=== PATIENT | male | born 1960 | race Caucasian/White ===

== ENCOUNTER → 2016-08-24 | Outpatient (CLI) | payer BC ==
[~2016-08-24] MED LIST: ASPEC325 PO; ATEN-173 PO; CLOP1TAB15 PO; EZET10TA41 PO; LISI-461 PO; METO25TA56 PO; NTRGSL/4 UT; PREG1CAP70 PO; SIMV80TA2 PO
--- NOTE | 2016-08-24 10:58 | DIAGNOSTIC IMAGING REPORT ---
LUMBAR SPINE 5 VIEWS HISTORY: Pain LOWER BACK PAIN COMPARISON: 08/11/2014 FINDINGS: Unchanged exam. Moderate degenerative disc change throughout. Very slight S-shaped scoliosis. No evidence for compression deformity. Moderate reactive on osteophytic change. No subluxation. IMPRESSION: Moderate degenerative change throughout the entire lumbar region. No acute process. Electronically signed by: Mitch Cook M.D. 08/24/2016 10:56 AM Dictated Date/Time: 08/24/2016 10:55 AM
== END | disposition home or self-care (01) ==
LOC: C.RAD 10:18
PROVIDERS: ATTEND Student in an Organized Health Care Education/Training Program
DX: M54.5 Low back pain (principal)

== ENCOUNTER 2019-09-27 16:34 | Inpatient (IN) ==
--- NOTE | 2019-09-27 16:55 | Emergency Department Note ---
History of Present Illness General Chief complaint: Neuro Symptoms/Deficit Stated complaint: DIZZY, BLURRY, WEAKNESS Time Seen by Provider: 09/27/19 16:39 Source: patient Mode of arrival: ambulatory Limitations: no limitations History of Present Illness Provider complaint: Blurred vision and dizziness Onset (ago): day(s) 2 Radiation: non-radiation Severity: moderate Current Pain Intensity: 0 Relieved By: + none Exacerbated By: + rest Associated symptoms: + weakness; no chest pain, no cough, no fever/chills, no headaches, no nausea/vomiting, no shortness of breath and no syncope Treatments prior to arrival: none This is a 59-year-old male who presents due to weakness, blurred vision, sense of being off balance which began yesterday. Patient states the blurred vision is both eyes and is constant, and does seem worse in his far vision. Patient does wear reading glasses, however this is new and different for him. No recent headaches, no tinnitus. Patient denies any true rotational component to the dizziness, describing it more as a sense of off balance when he attempts to change position or ambulate. Patient states he felt worse today and felt his symptoms were more severe, with difficulty walking. No nausea vomiting, no recent fevers or chills. Patient denies any recent URI symptoms. Patient states he was recently started on an oral medication for diabetes. He is not checking his blood sugar at home. No recent falls or trauma. No other recent medication changes. No known sick contact. No contact with any known coronavirus positive individual. No recent change in bowel or bladder function. Patient denies black or bloody stools. No recent leg swelling. Patient states he does have chronic neuropathy to his distal bilateral lower extremities over the last 20 years. Pt seen during a time of high acuity and national emergency pandemic while we aring PPE. Home Medications Home Medications Medication Instructions Recorded Confirmed Type aspirin [Aspirin Low Dose] 81 mg PO QAM 09/27/19 09/27/19 History atorvastatin 40 mg PO HS 09/27/19 09/27/19 History fenofibrate nanocrystallized 145 mg PO DAILY 09/27/19 09/27/19 History gabapentin 600 mg PO BID 09/27/19 09/27/19 History lisinopril 20 mg PO DAILY 09/27/19 09/27/19 History metformin 500 mg PO TID 09/27/19 09/27/19 History metoprolol tartrate 50 mg PO BID 09/27/19 09/27/19 History nitroglycerin 4 mg SUBLINGUAL .PRN/UD PRN 09/27/19 09/27/19 History pregabalin [Lyrica] 150 mg PO BID 09/27/19 09/27/19 History glipizide [Glucotrol XL] 5 mg PO DAILY 30 Days #60 tab 09/28/19 Rx Allergies Allergy/AdvReac Type Severity Reaction Status Date / Time No Known Allergies Allergy Mild Unverified 09/27/19 17:46 Past Med/Surg History Medical History (Updated 09/28/19 @ 05:02 by Eddie Parker MD) Benign essential tremor Bilateral impacted cerumen Coronary arteriosclerosis Dyslipidemia Hypertension Peripheral neuropathy Tremor Surgical History History of cardiac catheterization Family History Mother Lymphoma Father No problems noted. Social History Preferred Language: [place] Communication Ability: Effective Bottle Assembler Required: No Beliefs That Will Affect Care: None Current Living Situation: Spouse Feels Safe at Home: Yes Smoking Status: Unknown if ever smoked Hx Alcohol Use: No Hx Substance Use: No Review of Systems See HPI for pertinent positives & negatives. and A total of 10 systems reviewed and were otherwise negative Physical Exam Vital Signs Vital Signs - 24 hr 09/27/19 16:36 09/27/19 17:00 09/27/19 17:15 Temperature 36.7 C Temperature Source Oral Pulse Rate 74 Pulse Rate [Left Apical] 78 Pulse Rate from SpO2 Sensor Respiratory Rate 18 18 Respiratory Effort / Characteristics Non-Labored Spontaneous Respiratory Depth Normal Blood Pressure 129/79 Blood Pressure [Right Arm] 124/79 Blood Pressure Mean 95 Blood Pressure Mean [Right Arm] 94 Blood Pressure Position Sitting Pulse Oximetry 97 98 Oxygen Delivery Method Room Air Room Air Room Air Sepsis Recent Fever Within 48 Hours No Sepsis New/Unexplained Change in Mental Status No Sepsis Action Taken by Nursing No Action Required 09/27/19 17:26 09/27/19 18:00 09/27/19 18:30 Temperature Temperature Source Pulse Rate 65 62 63 Pulse Rate [Left Apical] Pulse Rate from SpO2 Sensor 65 63 Respiratory Rate 21 17 30 H Respiratory Effort / Characteristics Respiratory Depth Blood Pressure 131/85 117/78 113/69 Blood Pressure [Right Arm] Blood Pressure Mean 93 84 82 Blood Pressure Mean [Right Arm] Blood Pressure Position Pulse Oximetry 98 96 Oxygen Delivery Method Sepsis Recent Fever Within 48 Hours Sepsis New/Unexplained Change in Mental Status Sepsis Action Taken by Nursing 09/27/19 19:00 09/27/19 20:38 09/27/19 21:49 Temperature Temperature Source Pulse Rate 61 Pulse Rate [Left Apical] 54 L 60 Pulse Rate from SpO2 Sensor 61 Respiratory Rate 15 18 18 Respiratory Effort / Characteristics Respiratory Depth Blood Pressure 121/74 Blood Pressure [Right Arm] 124/87 131/76 Blood Pressure Mean 89 Blood Pressure Mean [Right Arm] 99 94 Blood Pressure Position Pulse Oximetry 94 96 99 Oxygen Delivery Method Room Air Room Air Sepsis Recent Fever Within 48 Hours Sepsis New/Unexplained Change in Mental Status Sepsis Action Taken by Nursing 09/27/19 22:00 09/27/19 22:01 09/27/19 22:30 Temperature Temperature Source Pulse Rate 55 L 55 L 51 L Pulse Rate [Left Apical] Pulse Rate from SpO2 Sensor 55 L Respiratory Rate 14 16 16 Respiratory Effort / Characteristics Respiratory Depth Blood Pressure 116/65 105/66 Blood Pressure [Right Arm] Blood Pressure Mean 76 75 Blood Pressure Mean [Right Arm] Blood Pressure Position Pulse Oximetry 97 97 96 Oxygen Delivery Method Sepsis Recent Fever Within 48 Hours Sepsis New/Unexplained Change in Mental Status Sepsis Action Taken by Nursing 09/27/19 23:28 09/27/19 23:55 09/28/19 00:01 Temperature Temperature Source Pulse Rate 57 L 58 L Pulse Rate [Left Apical] 56 L Pulse Rate from SpO2 Sensor Respiratory Rate 16 18 18 Respiratory Effort / Characteristics Respiratory Depth Blood Pressure 139/75 121/68 Blood Pressure [Right Arm] 123/83 Blood Pressure Mean 90 92 Blood Pressure Mean [Right Arm] 96 Blood Pressure Position Pulse Oximetry 98 96 95 Oxygen Delivery Method Room Air Room Air Sepsis Recent Fever Within 48 Hours Sepsis New/Unexplained Change in Mental Status Sepsis Action Taken by Nursing 09/28/19 00:31 09/28/19 01:00 Temperature Temperature Source Pulse Rate 54 L 61 Pulse Rate [Left Apical] Pulse Rate from SpO2 Sensor Respiratory Rate 15 20 Respiratory Effort / Characteristics Respiratory Depth Blood Pressure 113/61 111/66 Blood Pressure [Right Arm] Blood Pressure Mean 68 79 Blood Pressure Mean [Right Arm] Blood Pressure Position Pulse Oximetry 95 95 Oxygen Delivery Method Room Air Sepsis Recent Fever Within 48 Hours Sepsis New/Unexplained Change in Mental Status Sepsis Action Taken by Nursing GENERAL: alert, well appearing, well nourished, no distress, non-toxic EARS: Scant cerumen bilateral canals, TMs clear bilaterally EYE EXAM: normal conjunctiva, PERRLA and EOM's grossly intact, no nystagmus, no periorbital edema, no hyphema, no subconjunctival hemorrhage OROPHARYNX: no exudate, no erythema, lips, buccal mucosa, and tongue normal and mucous membranes are moist NECK: supple, no nuchal rigidity, no adenopathy, non-tender LUNGS: Clear to auscultation. Normal chest wall mechanics, no w/r/r HEART: no murmurs, S1 normal and S2 normal ABDOMEN: abdomen soft, non-tender, normo-active bowel sounds, no masses, no rebound or guarding. BACK: Back is symmetrical on inspection and there is no deformity, no midline tenderness, no CVA tenderness. SKIN: no rashes and no bruising UPPER EXTREMITIES: upper extremities are grossly normal. FROM, nml pulses b/l. LOWER EXTREMITIES: No pitting edema. FROM, nml pulses b/l. NEURO EXAM: Normal sensorium, cranial nerves II-XII grossly intact, normal speech, no gross weakness of arms, no gross weakness of legs. Gross sensation intact. Negative pronator drift. Normal [id number]. No ataxia. No facial droop. Strength 5/5 bilateral upper and lower extremities. Course Course 1804: Pt updated on results. VS stable. 2124: Discussed MRI with pt. Discussed dispo - he would like to go home. 2310: Pt attempted to walk at time of discharge and was very ataxic and complaining of increased sense of feeling off balance. Discussed possible additional inpatient mgmt and he was in agreement. 003: Case discussed with Dr. Parker for inpatient management. Administered Medications Discontinued Medications Aspirin (Ecotrin Ectab) 81 mg PO QAM [facility] Stop: 10/28/19 08:59 Last Admin: 09/28/19 08:30 Dose: 81 mg Documented by: [id number] Enoxaparin Sodium (Lovenox) 40 mg SQ Q24H [facility] Stop: 10/28/19 08:59 Last Admin: 05/17/20 08:30 Dose: 40 mg Documented by: [id number] Fenofibrate (Tricor) 145 mg PO DAILY [facility] Stop: 10/28/19 08:59 Last Admin: 09/28/19 08:30 Dose: 145 mg Documented by: [id number] Gabapentin (Neurontin) 600 mg PO BID [facility] Stop: 10/28/19 08:59 Last Admin: 09/28/19 08:30 Dose: 600 mg Documented by: [id number] Glimepiride (Amaryl) 2 mg PO QAM [facility] Stop: 10/28/19 10:29 Last Admin: 09/28/19 10:59 Dose: Not Given Documented by: [id number] Glipizide (Glucotrol Extended Rel) 5 mg PO QAM [facility] Stop: 10/28/19 10:59 Last Admin: 09/28/19 11:14 Dose: 5 mg Documented by: [id number] Sodium Chloride (Nss 1000ml) 1,000 mls @ 125 mls/hr IV .Q8H [facility] Stop: 10/27/19 16:59 Last Infusion: 09/28/19 10:27 Dose: 0 mls/hr Documented by: [id number] Admin: 09/28/19 09:53 Dose: 125 mls/hr Documented by: [id number] Infusion: 09/28/19 09:53 Dose: 125 mls/hr Documented by: [id number] Admin: 09/28/19 01:55 Dose: 125 mls/hr Documented by: [id number] Infusion: 09/28/19 01:35 Dose: 125 mls/hr Documented by: [id number] Admin: 09/27/19 17:35 Dose: 125 mls/hr Documented by: [id number] Insulin Aspart (Novolog Flexpen) 0 units SC ACHS [facility] Stop: 10/28/19 07:29 Last Admin: 09/28/19 08:31 Dose: 6 units Documented by: [id number] Cosigned by: [id number] Lisinopril (Zestril) 20 mg PO DAILY [facility] Stop: 10/28/19 08:59 Last Admin: 09/28/19 08:30 Dose: 20 mg Documented by: [id number] Meclizine HCl (Antivert) 25 mg PO NOW STA Stop: 09/27/19 23:09 Last Admin: 09/27/19 23:54 Dose: 25 mg Documented by: [id number] Metoprolol Tartrate (Lopressor) 50 mg PO BID [facility] Stop: 10/28/19 08:59 Last Admin: 09/28/19 08:31 Dose: Not Given Documented by: [id number] Pneumococcal Polyvalent Vaccine (Pneumovax-23) 25 mcg IM .ONCE ONE Stop: 09/28/19 04:16 Last Admin: 09/28/19 09:54 Dose: Not Given Documented by: [id number] Pregabalin (Lyrica) 150 mg PO BID [facility] Stop: 10/28/19 08:59 Last Admin: 09/28/19 08:30 Dose: 150 mg Documented by: [id number] Medical Decision Making Differential Diagnosis Differential diagnosis includes etiologies such as benign positional vertigo, dehydration, hypovolemia, anemia, tumor, infection, hypoglycemia, electrolyte abnormalities, cardiac sources, intracerebral event, toxicologic, neurologic, as well as others were entertained. Medical Records Attestation: I reviewed the patient's medical records. Home Medications Current Medication List: was personally reviewed by me Laboratory Data Attestation: I reviewed the patient's lab results. Result diagrams: 09/27/19 17:00 09/27/19 17:00 Lab Results 09/27/19 09/27/19 09/27/19 Range/Units 17:00 17:00 17:28 WBC 7.85 (4.8-10.8) K/uL RBC 4.61 L (4.7-6.1) M/uL Hgb 14.4 (14.0-18.0) g/dL Hct 42.0 (42-52) % MCV 91.1 (80-100) fL MCH 31.2 (25-34) pg MCHC 34.3 (32-36) g/dL RDW Std Deviation 41.8 (36.4-46.3) fL RDW Coeff of Geoff 12.6 (11.5-14.5) % Plt Count 139 (130-400) K/uL MPV 11.8 H (7.4-10.4) fL Immature Gran % (Auto) 0.4 % Neut % (Auto) 61.7 % Lymph % (Auto) 27.1 % [place] % (Auto) 7.8 % Eos % (Auto) 2.7 % Baso % (Auto) 0.3 % Immature Gran # (Auto) 0.03 H (0.00-0.02) K/uL Neut # (Auto) 4.85 (1.4-6.5) K/uL Lymph # (Auto) 2.13 (1.2-3.4) K/uL [place] # (Auto) 0.61 H (0.11-0.59) K/uL Eos # (Auto) 0.21 (0-0.5) K/uL Baso # (Auto) 0.02 (0-0.2) K/uL Sodium 135 L (136-145) mmol/L Potassium 4.2 (3.5-5.1) mmol/L Chloride 102 (98-107) mmol/L Carbon Dioxide 25 (21-32) mmol/L Anion Gap 8.0 (3-11) BUN 20 H (7-18) mg/dl Creatinine 1.08 (0.6-1.4) mg/dl Est Cr Clr Drug Dosing 90.1 ml/min Est GFR ( Amer) 86.6 Est GFR (Non-Af Amer) 74.7 BUN/Creatinine Ratio 18.8 (10-20) Glucose 306 H* (70-99) mg/dl POC Glucose 306 H* (70-99) mg/dl Calcium 9.0 (8.5-10.1) mg/dl Magnesium 1.9 (1.8-2.4) mg/dl Total Bilirubin 0.6 (0.2-1) mg/dl AST 16 (15-37) U/L ALT 31 (12-78) U/L Alkaline Phosphatase 112 (45-117) U/L Troponin I < 0.015 (0-0.045) ng/ml Total Protein 7.3 (6.4-8.2) gm/dl Albumin 4.1 (3.4-5.0) gm/dl Globulin 3.2 (2.5-4.0) gm/dl Albumin/Globulin Ratio 1.3 (0.9-2) Lipase 386 (73-393) U/L Beta-Hydroxybutyric Acd 1.14 (0.2-2.81) mg/dl TSH 1.980 (0.300-4.500) uIu/ml Urine Color Urine Appearance (Clear) Urine pH (4.5-7.5) Ur Specific [place] (1.000-1.030) Urine Protein (Negative) Urine Glucose (UA) (Negative) Urine Ketones (Negative) Urine Blood (Negative) Urine Nitrite (Negative) Urine Bilirubin (Negative) Urine Urobilinogen (Negative) Ur Leukocyte Esterase (Negative) 09/27/19 09/27/19 Range/Units 18:21 20:42 WBC (4.8-10.8) K/uL RBC (4.7-6.1) M/uL Hgb (14.0-18.0) g/dL Hct (42-52) % MCV (80-100) fL MCH (25-34) pg MCHC (32-36) g/dL RDW Std Deviation (36.4-46.3) fL RDW Coeff of Geoff (11.5-14.5) % Plt Count (130-400) K/uL MPV (7.4-10.4) fL Immature Gran % (Auto) % Neut % (Auto) % Lymph % (Auto) % [place] % (Auto) % Eos % (Auto) % Baso % (Auto) % Immature Gran # (Auto) (0.00-0.02) K/uL Neut # (Auto) (1.4-6.5) K/uL Lymph # (Auto) (1.2-3.4) K/uL [place] # (Auto) (0.11-0.59) K/uL Eos # (Auto) (0-0.5) K/uL Baso # (Auto) (0-0.2) K/uL Sodium (136-145) mmol/L Potassium (3.5-5.1) mmol/L Chloride (98-107) mmol/L Carbon Dioxide (21-32) mmol/L Anion Gap (3-11) BUN (7-18) mg/dl Creatinine (0.6-1.4) mg/dl Est Cr Clr Drug Dosing ml/min Est GFR ( Amer) Est GFR (Non-Af Amer) BUN/Creatinine Ratio (10-20) Glucose (70-99) mg/dl POC Glucose 230 H (70-99) mg/dl Calcium (8.5-10.1) mg/dl Magnesium (1.8-2.4) mg/dl Total Bilirubin (0.2-1) mg/dl AST (15-37) U/L ALT (12-78) U/L Alkaline Phosphatase (45-117) U/L Troponin I (0-0.045) ng/ml Total Protein (6.4-8.2) gm/dl Albumin (3.4-5.0) gm/dl Globulin (2.5-4.0) gm/dl Albumin/Globulin Ratio (0.9-2) Lipase (73-393) U/L Beta-Hydroxybutyric Acd (0.2-2.81) mg/dl TSH (0.300-4.500) uIu/ml Urine Color Yellow Urine Appearance Clear (Clear) Urine pH 5.0 (4.5-7.5) Ur Specific [place] 1.021 (1.000-1.030) Urine Protein Negative (Negative) Urine Glucose (UA) 3+ H (Negative) Urine Ketones Negative (Negative) Urine Blood Negative (Negative) Urine Nitrite Negative (Negative) Urine Bilirubin Negative (Negative) Urine Urobilinogen Negative (Negative) Ur Leukocyte Esterase Negative (Negative) Imaging Data Radiologist's Impression: CT SCAN OF THE BRAIN WITHOUT IV CONTRAST CLINICAL HISTORY: Dizziness. Blurry vision. COMPARISON STUDY: No priors. TECHNIQUE: Unenhanced axial CT scan of the brain is performed from the vertex to the skull base. A dose lowering technique was utilized adhering to the principles of ALARA. CT DOSE: 537.48 mGy.cm FINDINGS: Brain parenchyma: The brain parenchyma is normal in appearance. There is no hemorrhage, mass effect, or evidence of acute territorial ischemia by CT criteria. Cisneros-white matter differentiation is preserved. No extra-axial fluid collection is seen. Faint mineralization is noted in the basal ganglia. Ventricles, sulci, cisterns: Normal in configuration. Intracranial vasculature: The visualized intracranial vasculature at the skull base is normal in appearance. Calvarium: Unremarkable. Sinuses and mastoids: The visualized paranasal sinuses are clear. The mastoid air cells are well pneumatized. Orbits: The bony orbits are grossly intact. IMPRESSION: There is no hemorrhage, mass effect, or evidence of acute territorial ischemia by CT criteria. ACT 112: Negative or not required by law. Electronically signed by: Lm Ambrocio M.D. 09/27/2019 5:26 PM MRI OF THE BRAIN WITHOUT IV CONTRAST CLINICAL HISTORY: Dizziness. Blurry vision. COMPARISON STUDY: CT of the brain performed the same day 09/27/2019. TECHNIQUE: MRI of the brain was performed utilizing various T1 and T2-weighted sequences in the axial, sagittal, and coronal planes. IV contrast was not administered for this examination. FINDINGS: Brain parenchyma: The brain parenchyma is normal in appearance. There is no hemorrhage or mass effect. There is no restricted diffusion to suggest acute ischemia. Cisneros-white matter differentiation is preserved. No extra-axial fluid collection is seen. Mineralization is noted in the basal ganglia. The cerebellar tonsils are normal in configuration. Ventricles, sulci, and cisterns: Normal in configuration. Pituitary and sella: Unremarkable. Intracranial vasculature: Normal flow voids are maintained at the skull base. Orbits: The bony orbits are grossly intact. Orbital contents are normal in appearance. Sinuses and mastoids: There is mild mucosal thickening in the left maxillary antrum. The remaining paranasal sinuses are clear. The mastoid air cells are w ell pneumatized. Calvarium: Unremarkable. Cervical cord: Partially visualized cervical spinal cord is normal in morphology and signal intensity. IMPRESSION: No acute intracranial abnormality. ACT 112: Negative or not required by law. Electronically signed by: Lm Ambrocio M.D. 09/27/2019 8:11 PM MR ANGIOGRAM OF THE BRAIN CLINICAL HISTORY: Dizziness. Blurred vision. COMPARISON STUDY: CT and MRI of the brain performed the same day 09/27/2019. TECHNIQUE: 3-D [id number] MR angiography of the intracranial circulation is performed. 3-D tumble views are created and assessed. IV contrast was not administered for this examination. FINDINGS: There is a large right posterior communicating artery. The internal carotid arteries are widely patent bilaterally, as are the anterior and middle cerebral arteries. The vertebrobasilar system and posterior cerebral arteries are widely patent. The vertebral arteries are codominant. There is no aneurysm, high-grade stenosis, or focal vessel cutoff seen throughout the intracranial circulation. The brain parenchyma is normal as visualized. IMPRESSION: Unremarkable MR angiogram of the brain. ACT 112: Negative or not required by law. Electronically signed by: Lm Ambrocio M.D. 09/27/2019 8:13 PM ECG Data Attestation: I personally reviewed and interpreted this ECG as follows: Indication: + weakness Rate (beats per minute): 70 Rhythm: + normal sinus ECG Intervals/blocks: + Normal QRS and + Normal QT ECG [place]: + Normal ECG Findings: + Q waves (II, III, aVF) Blood Pressure Blood Pressure Findings: Elevated blood pressure Blood Pressure Disposition: further management by hospitalist PAWEL Narrative Patient here with concerning story of dizziness/off-balance sense as well as blurred vision for at least 24 to 36 hours. Patient had no other complaints of neurologic symptoms or headaches. Patient is a diabetic and was recently started on metformin. Patient does have other risk factors for peripheral vascular disease. Labs drawn and sent and patient initially sent for CT of the head without contrast. These are reassuring with the exception of hyperglycemia over 300. No evidence of DKA. No evidence of occult infectious etiology. Due to patient's risk factors and concern for risk for posterior circulation etiology, patient in agreement with plan to pursue MRI. MRI reassuring. Discussed with patient possible etiology. Patient symptoms seem less likely related to peripheral etiology on my initial exam despite lack of nystagmus or other focal neurologic deficits. Patient states he has not seen an eye doctor in many years and I discussed with him the importance of follow-up due to risk of diabetic retinopathy. No obvious evidence of a cranial nerve palsy secondary to diabetic neuropathy. Patient with chronic lower extremity peripheral ne uropathy. Discussed with him this could be contributing to a sense of off balance as well although this seems to be more of a chronic issue and he had not noticed any worsening symptoms despite his new diagnosis of diabetes. We discussed disposition on several occasions and patient insistent on going home and was in agreement with plan for follow-up as recommended with his family doctor, ophthalmology, as well as neurology. Patient tolerated p.o. here without difficulty. Discussed with patient no driving, and symptoms to return for and he was in agreement. At time of discharge patient went to get up and was ambulating and appeared markedly ataxic, reported feeling worse, and due to concern for safety and severity of symptoms, I again discussed with him possible inpatient management and he was in agreement. Case discussed with hospitalist. An order was placed for continuous cardiac monitoring. The monitor shows a rate of 60 with normal sinus rhythm. Impression & Plan Dizziness, Changes in vision, Hyperglycemia Discharge Plan Visit Data *Final* Discharge Date/Time: 09/28/19 01:27 Chief Complaint: Neuro Symptoms/Deficit Stated Complaint: DIZZY, BLURRY, WEAKNESS ED Provider: Niya Mishra Discharge Problem: Dizziness, Changes in vision, Hyperglycemia Patient Disposition: Admitted As Inpatient Condition: Good Discharge Instructions Interventions: ED Discharge Assessment Last Done: 09/28/19 01:27
[2019-09-27 17:19] LABS: Basophils # (auto) 0.02 K/uL (0-0.2); Basophils % (auto) 0.3 %; Eosinophils # (auto) 0.21 K/uL (0-0.5); Eosinophils % (auto) 2.7 %; Hemoglobin 14.4 g/dL (14.0-18.0); Immature Granulocytes # (auto) 0.03 K/uL (0.00-0.02); Immature Granulocytes % (auto) 0.4 %; Lymphocytes # (auto) 2.13 K/uL (1.2-3.4); Lymphocytes % (auto) 27.1 %; Mean Corpuscular Hemoglobin 31.2 pg (25-34); Mean Corpuscular Hgb Conc 34.3 g/dL (32-36); Mean Corpuscular Volume 91.1 fL (80-100); Mean Platelet Volume 11.8 fL (7.4-10.4); Monocytes # (auto) 0.61 K/uL (0.11-0.59); Monocytes % (auto) 7.8 %; Neutrophils # (auto) 4.85 K/uL (1.4-6.5); Neutrophils % (auto) 61.7 %; Platelet Count 139 K/uL (130-400); RDW Coefficient of Variation 12.6 % (11.5-14.5); RDW Standard Deviation 41.8 fL (36.4-46.3); Red Blood Count 4.61 M/uL (4.7-6.1); White Blood Count 7.85 K/uL (4.8-10.8)
--- NOTE | 2019-09-27 17:28 | CT Scan Report ---
CT SCAN OF THE BRAIN WITHOUT IV CONTRAST CLINICAL HISTORY: Dizziness. Blurry vision. COMPARISON STUDY: No priors. TECHNIQUE: Unenhanced axial CT scan of the brain is performed from the vertex to the skull base. A d ose lowering technique was utilized adhering to the principles of ALARA. CT DOSE: 537.48 mGy.cm FINDINGS: Brain parenchyma: The brain parenchyma is normal in appearance. There is no hemorrhage, mass effect, or evidence of acute territorial ischemia by CT criteria. Cisneros-white matter differentiation is preser yvonne. No extra-axial fluid collection is seen. Faint mineralization is noted in the basal ganglia. Ventricles, sulci, cisterns: Normal in configuration. Intracranial vasculature: The visualized intracranial vasculature at the skull base is normal in appe arance. Calvarium: Unremarkable. Sinuses and mastoids: The visualized paranasal sinuses are clear. The mastoid air cells are well pneu matized. Orbits: The bony orbits are grossly intact. IMPRESSION: There is no hemorrhage, mass effect, or evidence of acute territorial ischemia by CT haily sanchez. ACT 112: Negative or not required by law. Electronically signed by: Lm Ambrocio M.D. 09/27/2019 5:26 PM
[2019-09-27] MEDS: SODIUM CHLORIDE 0.9% 1000ML 1,000 ML IV SCH (17:35)
[2019-09-27 17:47] LABS: Alanine Aminotransferase 31 U/L (12-78); Albumin Level 4.1 gm/dl (3.4-5.0); Aspartate Aminotransferase 16 U/L (15-37); BUN Creatinine Ratio 18.8 (10-20); Blood Urea Nitrogen 20 mg/dl (7-18); Carbon Dioxide 25 mmol/L (21-32); Chloride 102 mmol/L (98-107); Creatinine Clr Calc Pharmacy 90.1 ml/min; Est GFR (African American) 86.6; Est GFR (Non-African American) 74.7; Glucose 306 mg/dl (70-99); Lipase 386 U/L (73-393); Magnesium 1.9 mg/dl (1.8-2.4); Potassium 4.2 mmol/L (3.5-5.1); Sodium 135 mmol/L (136-145)
[2019-09-27 17:49] LABS: Albumin Globulin Ratio 1.3 (0.9-2); Alkaline Phosphatase 112 U/L (45-117); Bilirubin,Total 0.6 mg/dl (0.2-1); Globulin 3.2 gm/dl (2.5-4.0); Total Protein 7.3 gm/dl (6.4-8.2); Troponin I < 0.015 ng/ml (0-0.045)
[2019-09-27 18:16] LABS: Beta-Hydroxybutyrate 1.14 mg/dl (0.2-2.81)
[2019-09-27 18:35] LABS: Appearance Urine Clear (Clear); Bilirubin Urine Negative (Negative); Blood Urine Negative (Negative); Color Urine Yellow; Glucose Urine UA 3+ (Negative); Ketones Urine Negative (Negative); Leukocyte Esterase Urine Negative (Negative); Nitrite Urine Negative (Negative); Protein Urine Negative (Negative); Specific Gravity Urine 1.021 (1.000-1.030); Urobilinogen Urine Negative (Negative)
--- NOTE | 2019-09-27 20:12 | Magnetic Resonance Report ---
MRI OF THE BRAIN WITHOUT IV CONTRAST CLINICAL HISTORY: Dizziness. Blurry vision. COMPARISON STUDY: CT of the brain performed the same day 09/27/2019. TECHNIQUE: MRI of the brain was performed utilizing various T1 and T2-weighted sequences in the axial , sagittal, and coronal planes. IV contrast was not administered for this examination. FINDINGS: Brain parenchyma: The brain parenchyma is normal in appearance. There is no hemorrhage or mass effect . There is no restricted diffusion to suggest acute ischemia. Cisneros-white matter differentiation is pr eserved. No extra-axial fluid collection is seen. Mineralization is noted in the basal ganglia. The c erebellar tonsils are normal in configuration. Ventricles, sulci, and cisterns: Normal in configuration. Pituitary and sella: Unremarkable. Intracranial vasculature: Normal flow voids are maintained at the skull base. Orbits: The bony orbits are grossly intact. Orbital contents are normal in appearance. Sinuses and mastoids: There is mild mucosal thickening in the left maxillary antrum. The remaining pa ranasal sinuses are clear. The mastoid air cells are well pneumatized. Calvarium: Unremarkable. Cervical cord: Partially visualized cervical spinal cord is normal in morphology and signal intensity . IMPRESSION: No acute intracranial abnormality. ACT 112: Negative or not required by law. Electronically signed by: Lm Ambrocio M.D. 09/27/2019 8:11 PM
--- NOTE | 2019-09-27 20:15 | Magnetic Resonance Report ---
MR ANGIOGRAM OF THE BRAIN CLINICAL HISTORY: Dizziness. Blurred vision. COMPARISON STUDY: CT and MRI of the brain performed the same day 09/27/2019. TECHNIQUE: 3-D [id number] MR angiography of the intracranial circulation is performed. 3-D tumble views are created and assessed. IV contrast was not administered for this examination. FINDINGS: There is a large right posterior communicating artery. The internal carotid arteries are wi colton patent bilaterally, as are the anterior and middle cerebral arteries. The vertebrobasilar system and posterior cerebral arteries are widely patent. The vertebral arteries are codominant. There is n o aneurysm, high-grade stenosis, or focal vessel cutoff seen throughout the intracranial circulation. The brain parenchyma is normal as visualized. IMPRESSION: Unremarkable MR angiogram of the brain. ACT 112: Negative or not required by law. Electronically signed by: Lm Ambrocio M.D. 09/27/2019 8:13 PM
[2019-09-27] MEDS ORDERED: MECLIZINE HCL 25 MG TAB PO STA (23:08)
[2019-09-28] MEDS ORDERED: ACETAMINOPHEN 325 MG TAB PO PRN (01:51)
[2019-09-28] MEDS ORDERED: GLUCOSE 40% GEL 15 GM TUBE PO PRN (01:51)
[2019-09-28] MEDS ORDERED: GLUCAGON FOR INJ 1 MG VIAL SQ PRN (01:51)
[2019-09-28] MEDS ORDERED: ALUMINUM/MAGNESIUM SUSP 30 ML UDC PO PRN (01:51)
[2019-09-28] MEDS ORDERED: NITROGLYCERIN SL 0.4 MG/TAB TAB SL PRN (01:51)
[2019-09-28] MEDS ORDERED: ONDANSETRON INJ 2 MG/ML 2 ML VIAL IV PRN (01:51)
[2019-09-28] MEDS ORDERED: GLUCOSE 10 TABS/TUBE PO PRN (01:51)
[2019-09-28] MEDS ORDERED: MAGNESIUM HYDROXIDE SUSP 30 ML UDC PO PRN (01:51)
[2019-09-28] MEDS ORDERED: CARBOHYDRATES FOR HYPOGLYCEMIA PO PRN (01:51)
[2019-09-28] MEDS ORDERED: DEXTROSE 50% 50 ML SYRINGE IV PRN (01:51)
[2019-09-28] MEDS: SODIUM CHLORIDE 0.9% 1000ML 1,000 ML IV SCH ×2 (01:55→09:53)
[2019-09-28] MEDS ORDERED: PNEUMOCOCCAL Polysaccharide Vaccine 25mcg/0.5mL vial/Syr IM ONE (04:15)
--- NOTE | 2019-09-28 05:03 | History & Physical Report ---
Date of Service September 28, 2019 Assessment & Plan (1) Dizziness: Dizziness as a cause of ambulatory dysfunction. No reason noted on work-up, other than as a possible manifestation of hyperglycemia by itself, and/or worsening of his relatively severe diabetic peripheral neuropathy Present on Admission?: Yes (2) Hyperglycemia due to type 2 diabetes mellitus: Check a hemoglobin A1c. Patient's blood sugars are significantly elevated, and may be the source of his entire set of symptoms: Blurred vision, ambulatory dysfunction associated with worsening peripheral neuropathy. He needs to be checking his sugars more frequently in the outpatient setting. Present on Admission?: Yes (3) Changes in vision: Patient presents with complaint of blurred vision, without diplopia. I have asked that his visual cue to be checked while in ED. There is no suggestion of retinopathy. The symptoms may be associated with hyperglycemia of 306, and could possibly have been higher over the past few days, but this is unknown as patient does not check his blood sugars. Present on Admission?: Yes (4) Peripheral neuropathy: Continue gabapentin 600 mg p.o. twice daily and Lyrica 150 mg p.o. twice daily. Patient needs to have significantly improved control of his blood sugar, as his worsening neuropathic symptoms today, may be associated with blood sugar being significantly above 200. Present on Admission?: Yes (5) Coronary arteriosclerosis: Controlling risk factors, no acute findings on examination Present on Admission?: Yes (6) Dyslipidemia: Continue atorvastatin 40 mg p.o. at bedtime, and fenofibrate 145 mg p.o. daily Present on Admission?: Yes (7) Hypertension: Continue lisinopril 20 mg p.o. daily, aspirin 81 mg every morning and metoprolol tartrate 50 mg p.o. twice daily Present on Admission?: Yes (8) Tremor: Noted as part of history, not evident on examination tonight Present on Admission?: Yes Admission and Anticipated Discharge Date Admission Date: September 28, 2019 History of Present Illness Chief Complaint: Patient presents to the emergency department with complaint of generalized lower extremity weakness, blurred vision without diplopia, and feeling off balance, since yesterday. Primary Care Provider: Luli Palmer, DO The patient is a 59-year-old male with a past medical history including benign essential tremor, CAD, dyslipidemia, hypertension, peripheral neuropathy and diabetes mellitus. He presents to the emergency department with the above symptoms. As he was walked in the ED, he was unable to walk in a straight line, and because of this grouping of symptoms, he is referred for evaluation for admission. Patient denies any focal weakness, he just reports that both of his legs are equally weak, and reports that his lack of sensation in his feet appears to be worsening at this time as well. He does not check his blood sugars at home, and blood sugar was found to be 306 in ED testing. He reports no recent change in his dietary habits. He has not had any recent travels or sick exposures. Imaging studies in the ED included a CT of the head without contrast, which showed no hemorrhage, mass-effect or evidence of acute territorial ischemia by CT criteria. MRI of brain without IV contrast showed no acute intracranial abnormality. MRA of the brain was unremarkable, with widely patent internal carotid arteries bilaterally, and anterior and middle cerebral arteries. The vertebrobasilar system and posterior cerebral arteries were widely patent. There was no aneurysm, high-grade stenosis or focal vessel cutoff seen throughout the intracranial circulation. Allergies Allergy/AdvReac Type Severity Reaction Status Date / Time No Known Allergies Allergy Mild Unverified 09/27/19 17:46 Home Medications Home Medications Medication Instructions Recorded Confirmed Type aspirin [Aspirin Low Dose] 81 mg PO QAM 09/27/19 09/27/19 History atorvastatin 40 mg PO HS 09/27/19 09/27/19 History fenofibrate nanocrystallized 145 mg PO DAILY 09/27/19 09/27/19 History gabapentin 600 mg PO BID 09/27/19 09/27/19 History lisinopril 20 mg PO DAILY 09/27/19 09/27/19 History metformin 500 mg PO TID 09/27/19 09/27/19 History metoprolol tartrate 50 mg PO BID 09/27/19 09/27/19 History nitroglycerin 4 mg SUBLINGUAL .PRN/UD PRN 09/27/19 09/27/19 History pregabalin [Lyrica] 150 mg PO BID 09/27/19 09/27/19 History Past Med/Surg History Medical History Benign essential tremor Bilateral impacted cerumen Coronary arteriosclerosis Dyslipidemia Hypertension Tremor Surgical History History of cardiac catheterization Family History Mother Lymphoma Father No problems noted. Social History Preferred Language: Polish Communication Ability: Effective Reel Slitter Required: No Beliefs That Will Affect Care: None Current Living Situation: Spouse Other Information That Helps Us Care for You: No Feels Safe at Home: Yes Safety Concerns: Feels Safe At This Time Smoking Status: Unknown if ever smoked Hx Alcohol Use: No Hx Substance Use: No Review of Systems Review of Systems: The patient denies chest pain, palpitations, shortness of breath, dyspnea on exertion, cough, lower extremity swelling, sore throat, fevers, chills, sweats, nausea, vomiting, diarrhea , constipation, abdominal pain, pelvic pain, blood in urine or stool, dysuria, urinary frequency or urgency, memory loss, loss of consciousness, rash, abnormal bruising or bleeding, focal weakness, numbness or tingling in arms or legs, generalized arthralgias or myalgias, back or neck pain, or night sweats. The review of systems is otherwise negative other than for that already noted above, and at least 10 systems have been reviewed. Physical Exam Physical Exam: The patient is awake, alert and oriented 3, well developed and well nourished, normocephalic and atraumatic, lying in bed and in no acute distress. HEENT--PERRL, EOMI, mucous membranes and oropharynx normal. Neck--supple. No JVD. No bruits. Thyroid normal, trachea midline, no adenopathy. Heart--normal S1 and S2. No murmurs, rubs or gallops. Lungs--clear bilaterally, no respiratory distress, no accessory muscle use. Abdomen--normal bowel sounds and soft. Nontender. Nondistended. Extremities--no cyanosis or clubbing. No edema. There are good distal pulses b/l. Dermatologic--normal skin turgor, normal color, no abnormal lymph nodes, no rash. Neurologic--cranial nerves II through XII grossly intact. Decreased sensation in both lower extremities up to knees. Rheumatologic--normal range of motion. Psychiatric--normal affect. Results & Data Results & Data ([facility]) Vital Signs (Past 12 Hours) Vital Signs Pulse Pulse Resp BP BP Pulse Ox 09/28/19 02:00 55 L 13 130/76 97 09/28/19 01:45 58 L 18 125/81 98 09/28/19 01:40 54 L 16 130/76 98 09/28/19 01:30 52 L 18 113/71 95 09/28/19 01:20 51 L 16 110/64 95 09/28/19 01:00 61 20 111/66 95 09/28/19 00:31 54 L 15 113/61 95 09/28/19 00:01 58 L 18 121/68 95 09/27/19 23:55 56 L 18 123/83 96 09/27/19 23:28 57 L 16 139/75 98 09/27/19 22:30 51 L 16 105/66 96 09/27/19 22:01 55 L 16 97 09/27/19 22:00 55 L 14 116/65 97 09/27/19 21:49 60 18 131/76 99 09/27/19 20:38 54 L 18 124/87 96 09/27/19 19:00 61 15 121/74 94 09/27/19 18:30 63 30 H 113/69 96 09/27/19 18:00 62 17 117/78 09/27/19 17:26 65 21 131/85 98 09/27/19 17:15 78 18 124/79 98 Laboratory Results Laboratory Results WBC 7.85 K/uL (4.8-10.8) 09/27/19 17:00 RBC 4.61 M/uL (4.7-6.1) L 09/27/19 17:00 Hgb 14.4 g/dL (14.0-18.0) 09/27/19 17:00 Hct 42.0 % (42-52) 09/27/19 17:00 MCV 91.1 fL (80-100) 09/27/19 17:00 MCH 31.2 pg (25-34) 09/27/19 17:00 MCHC 34.3 g/dL (32-36) 09/27/19 17:00 RDW Std Deviation 41.8 fL (36.4-46.3) 09/27/19 17:00 RDW Coeff of Geoff 12.6 % (11.5-14.5) 05/16/20 17:00 Plt Count 139 K/uL (130-400) 09/27/19 17:00 MPV 11.8 fL (7.4-10.4) H 09/27/19 17:00 Immature Gran % (Auto) 0.4 % 09/27/19 17:00 Neut % (Auto) 61.7 % 09/27/19 17:00 Lymph % (Auto) 27.1 % 09/27/19 17:00 Dimmit % (Auto) 7.8 % 09/27/19 17:00 Eos % (Auto) 2.7 % 09/27/19 17:00 Baso % (Auto) 0.3 % 09/27/19 17:00 Immature Gran # (Auto) 0.03 K/uL (0.00-0.02) H 09/27/19 17:00 Neut # (Auto) 4.85 K/uL (1.4-6.5) 09/27/19 17:00 Lymph # (Auto) 2.13 K/uL (1.2-3.4) 09/27/19 17:00 Dimmit # (Auto) 0.61 K/uL (0.11-0.59) H 09/27/19 17:00 Eos # (Auto) 0.21 K/uL (0-0.5) 09/27/19 17:00 Baso # (Auto) 0.02 K/uL (0-0.2) 09/27/19 17:00 Sodium 135 mmol/L (136-145) L 09/27/19 17:00 Potassium 4.2 mmol/L (3.5-5.1) 09/27/19 17:00 Chloride 102 mmol/L (98-107) 09/27/19 17:00 Carbon Dioxide 25 mmol/L (21-32) 09/27/19 17:00 Anion Gap 8.0 (3-11) 09/27/19 17:00 BUN 20 mg/dl (7-18) H 09/27/19 17:00 Creatinine 1.08 mg/dl (0.6-1.4) 09/27/19 17:00 Est Cr Clr Drug Dosing 90.1 ml/min 09/27/19 17:00 Est GFR ( Amer) 86.6 09/27/19 17:00 Est GFR (Non-Af Amer) 74.7 09/27/19 17:00 BUN/Creatinine Ratio 18.8 (10-20) 09/27/19 17:00 Glucose 306 mg/dl (70-99) H* 09/27/19 17:00 POC Glucose 230 mg/dl (70-99) H 09/27/19 20:42 Calcium 9.0 mg/dl (8.5-10.1) 09/27/19 17:00 Magnesium 1.9 mg/dl (1.8-2.4) 09/27/19 17:00 Total Bilirubin 0.6 mg/dl (0.2-1) 09/27/19 17:00 AST 16 U/L (15-37) 09/27/19 17:00 ALT 31 U/L (12-78) 09/27/19 17:00 Alkaline Phosphatase 112 U/L (45-117) 09/27/19 17:00 Troponin I < 0.015 ng/ml (0-0.045) 09/27/19 17:00 Total Protein 7.3 gm/dl (6.4-8.2) 09/27/19 17:00 Albumin 4.1 gm/dl (3.4-5.0) 09/27/19 17:00 Globulin 3.2 gm/dl (2.5-4.0) 09/27/19 17:00 Albumin/Globulin Ratio 1.3 (0.9-2) 09/27/19 17:00 Lipase 386 U/L (73-393) 09/27/19 17:00 Beta-Hydroxybutyric Acd 1.14 mg/dl (0.2-2.81) 09/27/19 17:00 TSH 1.980 uIu/ml (0.300-4.500) 09/27/19 17:00 Urine Color Yellow 09/27/19 18:21 Urine Appearance Clear (Clear) 09/27/19 18:21 Urine pH 5.0 (4.5-7.5) 09/27/19 18:21 Ur Specific Oden 1.021 (1.000-1.030) 09/27/19 18:21 Urine Protein Negative (Negative) 09/27/19 18: Urine Glucose (UA) 3+ (Negative) H 09/27/19 18:21 Urine Ketones Negative (Negative) 09/27/19 18:21 Urine Blood Negative (Negative) 09/27/19 18:21 Urine Nitrite Negative (Negative) 09/27/19 18:21 Urine Bilirubin Negative (Negative) 09/27/19 18:21 Urine Urobilinogen Negative (Negative) 09/27/19 18:21 Ur Leukocyte Esterase Negative (Negative) 09/27/19 18:21 Nasal Screen MRSA (PCR) Negative (Negative) 09/28/19 01:43 Diagnostic Findings [place], [place] [phone] CT Scan Report Patient: BRENDA RIVERA JRAdmit Date: 09/27/19 MR#: [id number]: [address] [place] [address] Acct ID:[id number]: Date: 1960[facility] Zip: [place] [address] Age: 59Location: ED Sex: M Room/Bed: Att Phy:Diagnosis: DIZZY, BLURRY, WEAKNESS Elvira Phy: Luli PalmerDRenitaService Date: 09/27/19 Fam Phy:Interpreting Phy: Lm Ambrocio MD Admit Phy: Ordering Phy: Niya Mishra, cc: ~ CT SCAN OF THE BRAIN WITHOUT IV CONTRAST CLINICAL HISTORY: Dizziness. Blurry vision. COMPARISON STUDY: No priors. TECHNIQUE: Unenhanced axial CT scan of the brain is performed from the vertex to the skull base. A dose lowering technique was utilized adhering to the principles of ALARA. CT DOSE: 537.48 mGy.cm FINDINGS: Brain parenchyma: The brain parenchyma is normal in appearance. There is no hemorrhage, mass effect, or evidence of acute territorial ischemia by CT criteria. Cisneros-white matter differentiation is preserved. No extra-axial fluid collection is seen. Faint mineralization is noted in the basal ganglia. Ventricles, sulci, cisterns: Normal in configuration. Intracranial vasculature: The visualized intracranial vasculature at the skull base is normal in appearance. Calvarium: Unremarkable. Sinuses and mastoids: The visualized paranasal sinuses are clear. The mastoid air cells are well pneumatized. Orbits: The bony orbits are grossly intact. IMPRESSION: There is no hemorrhage, mass effect, or evidence of acute territorial ischemia by CT criteria. ACT 112: Negative or not required by law. Electronically signed by: Lm Ambrocio M.D. 09/27/2019 5:26 PM Dictated: 09/27/19 172 Transcribed: 09/27/19 172 [place], [place] [phone] Magnetic Resonance Report Patient: BRENDA RIVERA JRAdmit Date: 09/27/19 MR#: [id number]: [address] [facility] Acct ID:[id number]: Date: 1960[facility] Zip: [place] [address] Age: 59Location: ED Sex: M Room/Bed: Att Phy:Diagnosis: DIZZY, BLURRY, WEAKNESS Elvira Phy: Luli Palmer D.O.Service Date: 09/27/19 Fam Phy:Interpreting Phy: Lm Ambrocio MD Admit Phy: Ordering Phy: Niya Mishra DO cc: ~ MRI OF THE BRAIN WITHOUT IV CONTRAST CLINICAL HISTORY: Dizziness. Blurry vision. COMPARISON STUDY: CT of the brain performed the same day 09/27/2019. TECHNIQUE: MRI of the brain was performed utilizing various T1 and T2-weighted sequences in the axial, sagittal, and coronal planes. IV contrast was not administered for this examination. FINDINGS: Brain parenchyma: The brain parenchyma is normal in appearance. There is no hemorrhage or mass effect. There is no restricted diffusion to suggest acute ischemia. Cisneros-white matter differentiation is preserved. No extra-axial fluid collection is seen. Mineralization is noted in the basal ganglia. The cerebellar tonsils are normal in configuration. Ventricles, sulci, and cisterns: Normal in configuration. Pituitary and sella: Unremarkable. Intracranial vasculature: Normal flow voids are maintained at the skull base. Orbits: The bony orbits are grossly intact. Orbital contents are normal in appearance. Sinuses and mastoids: There is mild mucosal thickening in the left maxillary antrum. The remaining paranasal sinuses are clear. The mastoid air cells are well pneumatized. Calvarium: Unremarkable. Cervical cord: Partially visualized cervical spinal cord is normal in morphology and signal intensity. IMPRESSION: No acute intracranial abnormality. ACT 112: Negative or not required by law. Electronically signed by: Lm Ambrocio M.D. 09/27/2019 8:11 PM Dictated: 09/27/192007 Transcribed: 09/27/192007 [place], [place] [phone] Magnetic Resonance Report Patient: BRENDA RIVERA JRAdmit Date: 09/27/19 MR#: [id number]: [address] [place] [address] Acct ID:[id number]: Date: 1960[facility] Zip: [place] [address] Age: 59Location: ED Sex: M Room/Bed: Att Phy:Diagnosis: DIZZY, BLURRY, WEAKNESS Elvira Phy: Luli Palmer D.O.Service Date: 09/27/19 [facility] Phy:Interpreting Phy: Lm Ambrocio MD Admit Phy: Ordering Phy: Niya Mishra DO cc: ~ MR ANGIOGRAM OF THE BRAIN CLINICAL HISTORY: Dizziness. Blurred vision. COMPARISON STUDY: CT and MRI of the brain performed the same day 09/27/2019. TECHNIQUE: 3-D [id number]-[id number] MR angiography of the intracranial circulation is performed. 3-D tumble views are created and assessed. IV contrast was not administered for this examination. FINDINGS: There is a large right posterior communicating artery. The internal carotid arteries are widely patent bilaterally, as are the anterior and middle cerebral arteries. The vertebrobasilar system and posterior cerebral arteries are widely patent. The vertebral arteries are codominant. There is no aneurysm, high-grade stenosis, or focal vessel cutoff seen throughout the intracranial circulation. The brain parenchyma is normal as visualized. IMPRESSION: Unremarkable MR angiogram of the brain. ACT 112: Negative or not required by law. Electronically signed by: Lm Ambrocio M.D. 09/27/2019 8:13 PM Dictated: 09/27/192010 Transcribed: 09/27/192010 Code Status & VTE Plan Code Status Full code VTE Prophylaxis Plan VTE Prophylaxis will be ordered: Yes PG Care Time/CCT Total # of Minutes Spent Total Time Spent with Patient: Total time spent is greater than 50% in coordination of care (as documented) at patient's floor/unit and/or counseling patient: Coding Level of Care Code 35222 OBS Care - Level 3 Diagnoses Dizziness R42 Hyperglycemia due to type 2 diabetes mellitus E11.65 Changes in vision H53.9 Peripheral neuropathy G62.9 Coronary arteriosclerosis I25.10 Dyslipidemia E78.5 Hypertension I10 Tremor R25.1
[2019-09-28 05:40] LABS: INR 1.1 (0.9-1.1); Prothrombin Time 11.4 Seconds (9.0-12.0)
[2019-09-28] MEDS ORDERED: INSULIN ASPART 100 UNITS/ML 3 ML PEN SC SCH (07:30)
[2019-09-28] MEDS ORDERED: FENOFIBRATE NANOCRYSTALLIZED 145 MG TABLET PO SCH (09:00)
[2019-09-28] MEDS ORDERED: METOPROLOL TARTRATE 50 MG TAB PO SCH (09:00)
[2019-09-28] MEDS ORDERED: ASPIRIN 81 MG ECTAB PO SCH (09:00)
[2019-09-28] MEDS ORDERED: GABAPENTIN 600 MG TAB PO SCH (09:00)
[2019-09-28] MEDS ORDERED: lisinopriL 20 MG TAB PO SCH (09:00)
[2019-09-28] MEDS ORDERED: PREGABALIN 150 MG CAP PO SCH (09:00)
[2019-09-28] MEDS ORDERED: ENOXAPARIN INJ 40 MG/0.4 ML SYR SQ SCH (09:00)
[2019-09-28] MEDS ORDERED: GLIMEPIRIDE 2 MG TAB PO SCH (10:30)
[2019-09-28] MEDS ORDERED: glipiZIDE ER 2.5 MG TABCR PO SCH (11:00)
--- NOTE | 2019-09-28 11:22 | Electrocardiogram Report ---
Test Reason : Blood Pressure : / mmHG Vent. 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
--- NOTE | 2019-09-28 13:18 | Discharge Summary ---
Date of Service September 28, 2019 Admission HPI Per Admitting Provider The patient is a 59-year-old male with a past medical history including benign essential tremor, CAD, dyslipidemia, hypertension, peripheral neuropathy and diabetes mellitus. He presents to the emergency department with the above symptoms. As he was walked in the ED, he was unable to walk in a straight line, and because of this grouping of symptoms, he is referred for evaluation for admission. Patient denies any focal weakness, he just reports that both of his legs are equally weak, and reports that his lack of sensation in his feet appears to be worsening at this time as well. He does not check his blood sugars at home, and blood sugar was found to be 306 in ED testing. He reports no recent change in his dietary habits. He has not had any recent travels or sick exposures. Imaging studies in the ED included a CT of the head without contrast, which showed no hemorrhage, mass-effect or evidence of acute territorial ischemia by CT criteria. MRI of brain without IV contrast showed no acute intracranial abnormality. MRA of the brain was unremarkable, with widely patent internal carotid arteries bilaterally, and anterior and middle cerebral arteries. The vertebrobasilar system and posterior cerebral arteries were widely patent. There was no aneurysm, high-grade stenosis or focal vessel cutoff seen throughout the intracranial circulation. Principal Diagnosis Uncontrolled DM type II, hyperglycemia causing visual changes Discharge Exam Constitutional WD/WN, vitals as above Eyes PERRL, conjunctivae normal, anicteric sclerae (EOM intact bilaterally, visual acuity intact, vision slightly blurred) ENMT external ear and nose normal, oropharynx normal Neck trachea midline, no thyromegaly Respiratory normal respiratory effort, lungs clear to auscultation Cardiovascular RRR, no murmur, no edema Gastrointestinal (Abdomen) normal bowel sounds, soft, nontender, no hepatosplenomegaly Musculoskeletal no cyanosis or clubbing, extremities motor strength 5/5 Skin no rashes, warm and dry Neurologic PERRL, EOMI, accommodation nl, no face palsy, no dysarthria deep tendon reflexes 2+ bilaterally and awake; + abnormal sensation to monofilament (decreased sensation in feet bilaterally) and no focal motor deficits Speech / Cognition: normal speech Psychiatric A+Ox3, euthymic affect Lymphatic no cervical or axillary lymphadenopathy Discharge Data Allergies Allergy/AdvReac Type Severity Reaction Status Date / Time No Known Allergies Allergy Mild Unverified 09/27/19 17:46 Consultations 09/28/19 00:56 ED Decision to Admit Stat 09/28/19 01:51 Consult Case Management - Discharge Planning Routine Ordered Studies 09/27/19 16:49 CT head/brain wo con Stat 09/27/19 18:04 MR angio head wo con Stat MR brain wo con Stat Hospital Course (1) Hyperglycemia due to type 2 diabetes mellitus: sugars > 300 at time of admission Patient's blood sugars are significantly elevated, and may be the source of his entire set of symptoms: Blurred vision, ambulatory dysfunction associated with worsening peripheral neuropathy. sugars responded to IV fluids and Novolog sliding scale while hospitalized HbA1c ordered, WILL NOT BE RUN UNTIL THURSDAY 09/28, results to Dr. Palmer patient admits that he does not check sugars, he eats whatever he wants, drinks whatever he wants he says he is compliant with Metformin TID and he reports losing 30 pounds ever since he started it a few months ago long discussion and education session about the dangers of uncontrolled diabetes explained that he has microvascular complications with retinopathy and neuropathy discussed that he is putting himself at risk for NC, stroke, renal disease and eventual failure provided him with numerous hand outs about DM type II, diet, exercise, complic ations etc continue Metformin 500mg TID, add Glipizide 5mg qAM instructed him to eat less complex carbs, eliminate simple sugars, walk 30 minutes 5 days a week follow up closely with Dr. Palmer this week, discuss DM management (2) Changes in vision: Patient presents with complaint of blurred vision, without diplopia. I have asked that his visual cue to be checked while in ED. There is no suggestion of retinopathy. The symptoms may be associated with hyperglycemia of 306, and could possibly have been higher over the past few days, but this is unknown as patient does not check his blood sugars. still with some blurred vision but a little better, no diplopia eye exam shows EOMI bilaterally, PERRLA MRI brain without any stroke, MR angiogram brain shows normal vessels recommend referral to eye doctor for detailed eye exam (3) Dizziness: Dizziness as a cause of ambulatory dysfunction. No reason noted on work-up, other than as a possible manifestation of hyperglycemia by itself, and/or worsening of his relatively severe diabetic peripheral neuropathy no dizziness today, he wants to get up and walk and be out of the hospital finger to nose test normal, no nystagmus, no nausea follow up outpatient (4) Peripheral neuropathy: Continue gabapentin 600 mg p.o. twice daily and Lyrica 150 mg p.o. twice daily. Patient needs to have significantly improved control of his blood sugar, as his worsening neuropathic symptoms today, may be associated with blood sugar being significantly above 200. 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 at bedtime, and fenofibrate 145 mg p.o. daily (7) Hypertension: Continue lisinopril 20 mg p.o. daily, aspirin 81 mg every morning and metoprolol tartrate 50 mg p.o. twice daily BP well controlled throughout stay (8) Tremor: Noted as part of history, not evident on examination today Total Time Total Time Spent Total Time Spent (In Minutes): 35 minutes Total Time Includes: Examination of the Patient, Discharge Planning, Medication Reconciliation and Other (prolonged education with patient, 20 minutes) Discharge Plan Discharge Items Patient Disposition: Home - Self-Care Reason For Visit: BLURRED VISION, GENERALIZED WEAKNESS, AMB DYSFUNCT Discharge Diagnosis: Uncontrolled DM type II Blurred vision, suspect diabetic retinopathy Diabetic peripheral neuropathy Condition on Discharge: Good Goals: better control on diabetes Activity: Resume your previous activity Weightbearing: Full weightbearing Non-emergency contact: Primary Care Provider Call non-emergency contact if: you have any medication questions and your symptoms worsen Follow-up/Referrals: Luli Palmer, [Primary Care Provider] - (this week, 09/28 to 10/02) Diet: Carb Consistent or DM2 and Heart Healthy Addtl Attending Provider Instructions: Medications: - GLIPIZIDE: 5mg daily in the morning, this is new medication to help control diabetes Blurred vision, neuropathy, uncontrolled diabetes type II sugars > 300 on admission blurred vision likely a result of diabetic retinopathy, recommend dedicated eye exam with opthomologist in near future, can be referred by Dr. Palmer MRI brain shows no evidence of stroke, MR angiogram shows blood vessels patent, no stenosis on exam, your extraocular movements are intact completely, pupils reactive and equal, no evidence of cranial nerve palsy blood pressure was well controlled, no evidence of arrhythmia on the monitor the only significant abnormality was hyperglycemia, sugars > 300 responded to IV fluids and subcutaneous insulin Diabetes type II you need to take your disease seriously, the longer it is poorly controlled the more complications you will have currently you have evidence of small vessel complications with neuropathy, retinopathy you will be at risk for large vessel complications like heart attack, stroke, kidney disease and eventual failure requiring hemodialysis starting today, you need to limit your carbohydrate intake with every meal cut your typical complex carbohydrate intake in half (breads, pastas, rice) and cut out sweets, soda etc. continue to take your Metformin three times a day I will prescribe you Glipizide 5mg every morning as a second agent to control blood sugars follow up this week with Dr. Palmer, could consider treatment such as GLP-1 agonist (Maricarmen) need to be referred to eye doctor for dedicated eye exam get regular exercise, 30 minutes at a time, 5 times a week try to lose 10% of your body weight, 20lbs would be a reasonable goal Pending Studies at Discharge: Yes Studies:: HbA1c Stand-Alone Forms: My [facility] [employer], Smoking Cessation Medications and DC Order Prescriptions: New glipizide [Glucotrol XL] 2.5 mg tablet extended release 24hr 5 mg PO DAILY 30 Days Qty: 60 RF: 0 Continued atorvastatin 40 mg Tablet 40 mg PO HS RF: 0 metformin 500 mg Tablet Extended Release 24hr 500 mg PO TID RF: 0 aspirin [Aspirin Low Dose] 81 mg Tablet,Delayed Release (Dr/Ec) 81 mg PO QAM RF: 0 gabapentin 600 mg Tablet 600 mg PO BID RF: 0 pregabalin [Lyrica] 150 mg Capsule 150 mg PO BID RF: 0 fenofibrate nanocrystallized 145 mg tablet 145 mg PO DAILY RF: 0 lisinopril 20 mg tablet 20 mg PO DAILY RF: 0 metoprolol tartrate 50 mg tablet 50 mg PO BID RF: 0 nitroglycerin 0.4 mg Tablet, Sublingual 4 mg sublingual .PRN/UD PRN (Reason: Chest Pain) RF: 0 Discharge Orders: Discharge Order (Routine); Ordered 09/28/19 Ordered By: Yehuda Lovett/Other Patient Handouts: Diabetes Backend Python Developer Complications, Diabetes Resources, Diabetes Type 2 Managing, Diabetes Exercise Plan, Diabetes Meal Planning, Diabetes Carbs Fats Protein Admission Data Admit Date/Time: 05/17/20 01:15 Attending Provider: Yehuda Joe Admit Provider: Eddie Parker Primary Care Provider: Luli Palmer Other Providers: Eddie Parker Other Interventions: Discharge Summary Assessment (RN) Last Done: 09/28/19 11:02 DC Date/Time DO NOT enter until pt leaves facility: 09/28/19 11:26 Coding Level of Care Code D/C Day Management >30 mins Diagnoses Hyperglycemia due to type 2 diabetes mellitus E11.65 Changes in vision H53.9 Dizziness R42 Peripheral neuropathy G62.9 Coronary arteriosclerosis I25.10 Dyslipidemia E78.5 Hypertension I10 Tremor R25.1
[2019-09-28] MEDS ORDERED: ATORVASTATIN 40 MG TAB PO SCH (21:00)
== END 2019-09-28 11:26 | disposition home or self-care (01) | DRG 639 ==
LOC: ED 16:34 → SUATTDRO 09-28 01:15 → 1E 09-28 01:15